=== PATIENT | male | born 1960 | race Caucasian/White ===

== ENCOUNTER 2022-03-26 05:28 | Inpatient (IN) | payer OTHER ==
[2022-03-19 13:57] LABS: BASOPHILS % (AUTO) 0.2 % (0-1); EOSINOPHILS # (AUTO) 0.1 X10'3 (0-0.9); LYMPHOCYTES # (AUTO) 2.7 X10'3 (1.1-4.8); LYMPHOCYTES % (AUTO) 42.1 % (21-51); MEAN CORPUSCULAR HEMOGLOBIN 30.2 PG (27.0-31.0); MEAN CORPUSCULAR VOLUME 91.7 FL (78-98); MEAN PLATELET VOLUME 9.2 FL (7.4-10.4); MONOCYTES # (AUTO) 0.4 X10'3 (0-0.9); MONOCYTES % (AUTO) 6.6 % (2-12); NEUTROPHILS # (AUTO) 3.1 X10'3 (1.8-7.7); NEUTROPHILS % (AUTO) 49.1 % (42-75); PRE OP HEMATOCRIT 42.4 % (42.0-52.0); PRE OP PLATELET COUNT 138 X10'3 (140-440); RED BLOOD COUNT 4.63 X10'6 (4.70-6.10); RED CELL DISTRIBUTION WIDTH 13.8 % (11.5-14.5)
[2022-03-19 14:12] LABS: PRE OP PROTIME 10.6 SECONDS (9.0-12.0)
[2022-03-19 14:14] LABS: ALBUMIN 4.2 G/DL (3.4-5.0); ALKALINE PHOSPHATASE 81 IU/L (46-116); BLOOD UREA NITROGEN 15 MG/DL (7-18); BUN/CREATININE RATIO 15.3 (5.4-32.0); CALCIUM 8.8 MG/DL (8.5-10.1); CHLORIDE 108 MMOL/L (99-107); CREATININE 0.98 MG/DL (0.60-1.10); PRE OP ALT 28 U/L (30-65); PRE OP AST 20 U/L (10-37); PRE OP BILIRUB, TOTAL 0.7 MG/DL (0.0-1.0); PRE OP GLUCOSE 94 MG/DL (70-104); PRE OP POTASSIUM 4.3 MMOL/L (3.4-5.1); TOTAL CARBON DIOXIDE 27.6 MMOL/L (24-32); eGFR 78 ML/MIN
[2022-03-19 14:17] LABS: ALBUMIN/GLOBULIN RATIO 1.2 (1.1-1.5); PRE OP ANION GAP 6 (8-16); PRE OP SODIUM 142 MMOL/L (135-145); TOTAL PROTEIN 7.7 G/DL (6.4-8.2)
[2022-03-26] VITALS (20 sets, daily range): BP systolic 112–148; BP diastolic 66–90
[~2022-03-26] VITALS: Ht 190.5 cm; Wt 98.6 kg
[~2022-03-26 05:28] MED LIST: DICLOFENAC GEL 1% TOP; FLO0.4C PO; MELO-102 PO; ROSU10TA2 PO; TIZA2CAP PO
[2022-03-26] MEDS ORDERED: celeCOXIB 100mg capsule PO ONE ×2 (05:30)
[2022-03-26] MEDS ORDERED: metoclopramide 5 mg/ml inj IV ONE (05:30)
[2022-03-26] MEDS ORDERED: gabapentin 300mg capsule PO ONE (05:30)
[2022-03-26] MEDS ORDERED: ceFAZolin inj. 2,000 MG in dextrose 5%-water 100 ML IV ONE (05:30)
[2022-03-26] MEDS ORDERED: tranexamic acid inj. 1,000 MG in 0.7% saline 100 ML PMX IV ONE (05:30)
[2022-03-26] MEDS ORDERED: oxyCODONE SR 10mg (sust. release) tab -2 tabs (20mg) PO ONE (05:30)
[2022-03-26] MEDS ORDERED: vancomycin 1,500 MG in NS 300ml IV soln IV ONE (05:30)
[2022-03-26] MEDS ORDERED: acetaminophen 325mg tablet PO ONE (05:30)
[2022-03-26] MEDS ORDERED: famotidine 20mg tablet PO ONE (05:30)
--- NOTE | 2022-03-26 05:40 | NUR ---
CSM: PEDAL PULSES PRESENT, MARKED. SKIN WARM PINK AND DRY. PATIENT STATES HE DID NOT WATCH THE VIDEO BUT HE READ THE BROCHURE AND USED THE SOAP HE WAS GIVEN. PATIENT WAS NOT AWARE OF MUPIROCIN CREAM AND DID NOT USE IT. EDUCATED PATIENT ON THE USE OF THE INCENTIVE SPIROMETER AND ITS IMPORTANCE. IV INITIATED AND FLUSHED WITH 10ML SYRINGE. NO COMPLICATIONS. ANOTHER NURSE CHECKED IT ASLO STARTED VANCO CHECKED FOR TWO DRIPS TO VERIFY VACNO WAS RUNNING. HAD ANOTHER NURSE COME CHECK VANCO ADMINISTRATION
[2022-03-26] MEDS: ringers solution, lacted 1,000 ML IV SCH ×2 (06:24→20:46)
[2022-03-26] MEDS ORDERED: bisacodyl 10mg suppository rectal RC PRN (06:35)
[2022-03-26] MEDS ORDERED: tranexamic acid inj. 1,000 MG in normal saline 100ml IV soln 100 ML IV ONE (06:35)
[2022-03-26] MEDS ORDERED: acetaminophen 325mg tablet PO PRN (06:35)
[2022-03-26] MEDS ORDERED: diphenhydrAMINE 25mg capsule PO PRN ×2 (06:35)
[2022-03-26] MEDS ORDERED: HYDROmorphone inj. 0.5 MG/0.5 ML DISP.SYRIN IV PRN (06:35)
[2022-03-26] MEDS ORDERED: ondansetron/PF 4mg/2ml inj IV PRN ×2 (06:35→08:10)
[2022-03-26] MEDS ORDERED: HYDROmorphone 1 mg/ml syringe IV PRN (06:35)
[2022-03-26] MEDS ORDERED: naloxone 0.4 mg/ml inj IV PRN (06:35)
[2022-03-26] MEDS ORDERED: magnesium hydroxide 30ml (MOM) UD suspension PO PRN (06:35)
[2022-03-26] MEDS ORDERED: ketorolac trometh. 30mg/ml inj. ONE (07:01)
[2022-03-26] MEDS ORDERED: epiNEPHrine 1 mg/ml inj ONE (07:01)
[2022-03-26] MEDS ORDERED: ROPIVAcaine 0.5% (5mg/ml) 30ml vial ONE (07:01)
[2022-03-26] MEDS ORDERED: cloNIDine hcl/PF 100mcg/ml inj ONE (07:01)
[2022-03-26] MEDS ORDERED: vancomycin 1,000mg inj ONE (07:01)
[2022-03-26] MEDS ORDERED: fentaNYL/PF 50MCG/1 ML 2ML syringe ONE (07:11)
[2022-03-26] MEDS ORDERED: MIDAZolam 1 MG/ML 5ML VIAL ONE (07:11)
[2022-03-26] MEDS: gabapentin 300mg capsule PO SCH ×3 (08:00→20:55)
[2022-03-26] MEDS: multivitamins, therapeutics tablet PO SCH (08:00)
[2022-03-26] MEDS: ascorbic acid 500mg tablet PO SCH ×2 (08:00→20:55)
[2022-03-26] MEDS ORDERED: morphine 4 MG/ML inj SYRINge IV PRN (08:10)
[2022-03-26] MEDS ORDERED: meperidine/PF 25mg/ml syringe IV PRN ×3 (08:10)
[2022-03-26] MEDS ORDERED: proCHLORperazine 10 MG/2 ml inj IV PRN (08:10)
[2022-03-26] MEDS ORDERED: morphine 2 MG/ML inj. syringe IV PRN (08:10)
[2022-03-26] MEDS ORDERED: ringers solution, lacted 1,000 ML IV SCH (08:10)
[2022-03-26] MEDS ORDERED: glycopyrrolate 0.2mg/ml inj ONE (08:15)
[2022-03-26] MEDS ORDERED: propofol inj 20 ML IV ONE (08:15)
[2022-03-26] MEDS ORDERED: ePHEDrine 50MG/ML INJ. ONE (08:15)
[2022-03-26] MEDS ORDERED: phenylephrine 10mg/ml inj. ONE (08:15)
[2022-03-26] MEDS: aspirin 325mg tablet PO SCH (08:30)
--- NOTE | 2022-03-26 08:35 | NUR ---
Received from OR via SURGICAL BED , accompanied by Anesthesiologist JEFFREY and report given by Anesthesiolgist. PATIENT WITH 20G PIV IN LEFT UE RUNNING LR AT 100. PATIENT WITH KNEE IMMOBILIZER AND SATHISH VAC TO RIGHT HIP. VSS AT THIS TIME. SCDS DONNED. + DP PRESENT Addendum: 03/26/22 at 0854 by Anthony Zhu RN, RN Amended: Links added.
[2022-03-26] MEDS: HYDROcodone/acetaminophen 10/325mg tab PO PRN ×3 (10:00→21:02)
--- NOTE | 2022-03-26 11:04 | NUR ---
Patient came to O/N unit while I was on my break. When I check on himm like around 10:30 am, he was alert and oriented x 4, present at bedside. Patient has right leg immobilizer, patient has sensation on his legs and skin warm to touch. Patient has no cummings catheter in place. Patient stated he has a bag left in the room where he was - I called Recovery Room, spoke to Gage (same nurse who gave me a report on the phone) about the bag that patient claimed he left in the room where he was. Gage said he will look for it
[2022-03-26] MEDS ORDERED: tranexamic acid inj. 1,000 MG in normal saline 100ml IV soln 90 ML IV ONE (13:00)
--- NOTE | 2022-03-26 13:27 | NUR ---
Patient reported feeling he has to pee but could not pee. Bladder scan showed 677 ml. Received telephone order to do a straight cath
--- NOTE | 2022-03-26 13:51 | NUR ---
Performed a straight cath procedure on this patient using sterile technique. I drained 900 ml of yellow urine, bladder scan showed 677 ml
[2022-03-26] MEDS: potassium cl 20mEq in 1/2 NS 1,000 ML IV SCH ×3 (14:35→22:35)
--- NOTE | 2022-03-26 15:52 | NUR ---
Still awaiting for Tranexamic Acid IV, I called pharmacy about this
[2022-03-26] MEDS: cefazolin/dext.iso 2gm/100ml 100 ML IV SCH (17:34)
--- NOTE | 2022-03-26 18:43 | NUR ---
Patient in room ORTHO 4014. I have received report from BLAYNE JIN and had the opportunity to ask questions and assume patient care.
[2022-03-26] MEDS ORDERED: vancomycin 1500mg/300ml PREMIX 500 ML IV SCH (20:00)
[2022-03-26] MEDS ORDERED: atorvastatin 20mg tablet PO SCH (21:00)
[2022-03-26] MEDS ORDERED: tamsulosin 0.4mg capsule PO SCH (21:00)
[2022-03-26] MEDS ORDERED: sennosides 8.6mg tablet PO SCH (21:00)
[2022-03-27] MEDS: cefazolin/dext.iso 2gm/100ml 100 ML IV SCH (00:27)
[2022-03-27 02:34] VITALS: BP 125/81
[2022-03-27] MEDS: potassium cl 20mEq in 1/2 NS 1,000 ML IV SCH (03:02)
--- NOTE | 2022-03-27 04:29 | NUR ---
PATIENT BLADDER SCANNED AND THERE IS >600CC IN BLADDER. PATIENT UNABLE TO VOID PROPERLY. SEVERE BPH.
[2022-03-27] MEDS: HYDROcodone/acetaminophen 10/325mg tab PO PRN ×2 (04:32→09:44)
--- NOTE | 2022-03-27 05:09 | NUR ---
STRAIGHT CATH PATIENT AND HAD 800 CC OUT
[2022-03-27 06:00] VITALS: BP 109/65
--- NOTE | 2022-03-27 06:22 | NUR ---
Problems reprioritized. Patient report given, questions answered & plan of care reviewed with MILA JIN.
[2022-03-27] MEDS: aspirin 325mg tablet PO SCH (07:48)
[2022-03-27] MEDS: multivitamins, therapeutics tablet PO SCH (07:49)
[2022-03-27] MEDS: ascorbic acid 500mg tablet PO SCH (07:49)
[2022-03-27] MEDS: gabapentin 300mg capsule PO SCH (07:49)
[2022-03-27 08:08] LABS: BASOPHILS % (AUTO) 0.1 % (0-1); EOSINOPHILS % (AUTO) 0.1 % (0-6); HEMOGLOBIN 13.6 g/dl (14.0-17.9); LYMPHOCYTES # (AUTO) 1.6 X10'3 (1.1-4.8); LYMPHOCYTES % (AUTO) 15.5 % (21-51); MEAN CORPUSCULAR HEMOGLOBIN 31.3 PG (27.0-31.0); MEAN CORPUSCULAR HGB CONC 33.9 g/dL (33.0-36.5); MEAN CORPUSCULAR VOLUME 92.5 FL (78-98); MEAN PLATELET VOLUME 9.1 FL (7.4-10.4); MONOCYTES # (AUTO) 0.7 X10'3 (0-0.9); MONOCYTES % (AUTO) 6.5 % (2-12); NEUTROPHILS % (AUTO) 77.8 % (42-75); PLATELET COUNT 145 X10'3 (140-440); RED BLOOD COUNT 4.33 X10'6 (4.70-6.10); RED CELL DISTRIBUTION WIDTH 13.4 % (11.5-14.5); WHITE BLOOD COUNT 10.3 X10'3 (4.5-11.0)
[2022-03-27 08:18] LABS: CHLORIDE 103 MMOL/L (99-107); POTASSIUM 3.9 MMOL/L (3.5-5.1); SODIUM 137 MMOL/L (135-145)
[2022-03-27 08:19] LABS: ANION GAP 9 (8-16); TOTAL CARBON DIOXIDE 24.7 MMOL/L (24-32)
[2022-03-27 10:00] VITALS: BP 118/73
--- NOTE | 2022-03-27 10:00 | NUR ---
Pt reported voided x 2 and reported emptied bladder and back to pt baseline for voiding pattern. Pt declined any other interventions and anxious to go home.
--- NOTE | 2022-03-27 11:18 | NUR ---
Joint surgery consult: Pt s/p R hip surgery this admit per EMR. RD provided pt w/ verbal high protein ed though upon RD return for physical handout pt had been discharged. Written high protein ed w/ RD contact information mailed to pt home address provided in EMR. Addendum: 03/27/22 at [address] Amended: Links added.
[2022-03-27] MEDS ORDERED: celeCOXIB 100mg capsule PO SCH (20:00)
== END 2022-03-27 11:06 | disposition home or self-care (01) | DRG 470 ==
LOC: PAS 05:28 → PAS IN 06:48 → ORTHO 4S 06:49 → EDSTATUS 07:30
PROVIDERS: ADMIT Orthopaedic Surgery; ATTEND Orthopaedic Surgery
PROC: 0SR906Z Replacement of Right Hip Joint with Oxidized Zirconium on Polyethylene Synthetic Substitute, Open Approach (ICD-10-PCS; principal; 2022-03-26 07:22)
DX: M16.11 Unilateral primary osteoarthritis, right hip (principal); Z79.899 Other long term (current) drug therapy
CPT/HCPCS: Z7506; Z7508; 36415; 71045; 72170; 80051; 80053; 82948; 85025; 85610; 85730; 86885; 86900; 86901; 87081; 97110; 97116; 97162; 97530; A7000; C1776; G0378; J0171; J0690; J0735; J1885; J2250; J2370; J2704; J2765; J2795; J3010; J3370; J3480; J3490; J7040; J7060; J7120